=== PATIENT | female | born 1970 | race Caucasian/White ===

== ENCOUNTER 2017-07-08 07:32 | Inpatient (IN) | payer OTHER ==
[2017-07-08] MEDS: Misoprostol TAB* 100 MCG VAGINAL PRN ×2 (09:50→15:27)
[2017-07-08 11:10] LABS: ABS Basophils 0.1 10^3/ul (0-0.2); ABS Eosinophils 0.3 10^3/ul (0-0.6); ABS Lymphocytes 1.5 10^3/ul (1.0-4.8); ABS Monocytes 0.5 10^3/ul (0-0.8); ABS Neutrophils 6.1 10^3/ul (1.5-7.7); ABS Nucleated RBC 0 10^3/ul; Eosinophil % 3.2 % (0-6); Hematocrit 32 % (35-47); Hemoglobin 11.1 g/dl (12.0-16.0); Lymphocyte % 17.7 % (25-47); Mean Corpuscular HGB Conc 35 g/dl (31-36); Mean Corpuscular Hemoglobin 31 pg (27-31); Mean Corpuscular Volume 89 fL (80-97); Mean Platelet Volume 9 um3 (7.4-10.4); Nucleated Red Blood Cells % 0.1; Platelet Count 212 10^3/ul (150-450); Red Blood Count 3.62 10^6/ul (4.0-5.4); Red Cell Distribution Width 14 % (10.5-15); White Blood Count 8.4 10^3/ul (3.5-10.8)
[2017-07-08 12:12] LABS: EGFR Non-African American 122.1 (>60)
[2017-07-08] MEDS ORDERED: Oxytocin in LR* 20 UNITS/1,000 ML BAG IVPB ONE (19:51)
[2017-07-08] MEDS ORDERED: Oxytocin in LR* 20 UNITS/1,000 ML BAG IVPB SCH (20:00)
[2017-07-09] MEDS ORDERED: Penicillin G Potassium IV* 5,000,000 UNITS in NS 0.9% 100 ML* 100 ML IVPB ONE (04:46)
[2017-07-09] MEDS ORDERED: Nalbuphine* 20 MG/ML 1 ML VIAL IV PRN (05:53)
[2017-07-09] MEDS ORDERED: Promethazine INJ(RESTRICTED)* 25 MG/ML 1 ML VIAL IV PRN (05:54)
[2017-07-09] MEDS ORDERED: OBEPIDURAL* 250 ML EPIDURAL ONE (07:59)
[2017-07-09] MEDS ORDERED: Phenylephrine IV* 40 MCG/ML 10 ML SYRINGE ONE (08:07)
[2017-07-09] MEDS ORDERED: EPHEDrine (Pressors)* 50 MG/ML VIAL IV PUSH PRN ×2 (09:36)
[2017-07-09] MEDS ORDERED: Famotidine TAB* 20 MG PO PRN (09:36)
[2017-07-09] MEDS ORDERED: Phenylephrine IV* 40 MCG/ML 10 ML SYRINGE IV PUSH PRN ×2 (09:36)
[2017-07-09] MEDS ORDERED: Sodium Citrate/Citric Acid* 15 ML UDC PO PRN (09:36)
[2017-07-09] MEDS: Penicillin G Potassium IV* 2,500,000 UNITS in NS 0.9% 100 ML* 100 ML IVPB SCH (10:06)
[2017-07-09] MEDS: Levothyroxine TAB* 25 MCG TAB PO SCH (10:22)
[2017-07-09] MEDS ORDERED: Witch Hazel PAD* JAR TOPICAL PRN (13:11)
[2017-07-09] MEDS ORDERED: Glycerin ADULT SUPP PR PRN (13:11)
[2017-07-09] MEDS: OBEPIDURAL* 250 ML EPIDURAL SCH (13:40)
[2017-07-09] MEDS ORDERED: Misoprostol TAB* 200 MCG PR ONE (13:53)
[2017-07-09] MEDS ORDERED: Oxytocin in LR* 20 UNITS/1,000 ML BAG IVPB SCH (14:00)
[2017-07-09] MEDS: Ibuprofen TAB* 600 MG PO PRN (14:47)
[2017-07-09] MEDS: Docusate CAP* 100 MG PO SCH ×2 (14:58→22:54)
[2017-07-09] MEDS: Dibucaine 1% 28.35 GM TUBE PR PRN (17:09)
[2017-07-09] MEDS: Simethicone TAB* 80 MG TAB.CHEW PO SCH (22:55)
[2017-07-10] MEDS: Penicillin G Potassium IV* 2,500,000 UNITS in NS 0.9% 100 ML* 100 ML IVPB SCH (01:01)
[2017-07-10] MEDS: Ibuprofen TAB* 600 MG PO PRN ×4 (03:04→20:58)
[2017-07-10] MEDS: Acetaminophen TAB* 325 MG PO PRN (06:11)
[2017-07-10] MEDS: Levothyroxine TAB* 25 MCG TAB PO SCH (06:11)
[2017-07-10 06:46] LABS: ABS Basophils 0.1 10^3/ul (0-0.2); ABS Eosinophils 0.2 10^3/ul (0-0.6); ABS Lymphocytes 1.9 10^3/ul (1.0-4.8); ABS Monocytes 0.7 10^3/ul (0-0.8); ABS Neutrophils 10.2 10^3/ul (1.5-7.7); ABS Nucleated RBC 0 10^3/ul; Eosinophil % 1.2 % (0-6); Hematocrit 27 % (35-47); Hemoglobin 9.3 g/dl (12.0-16.0); Lymphocyte % 14.3 % (25-47); Mean Corpuscular HGB Conc 34 g/dl (31-36); Mean Corpuscular Hemoglobin 31 pg (27-31); Mean Corpuscular Volume 89 fL (80-97); Mean Platelet Volume 9 um3 (7.4-10.4); Nucleated Red Blood Cells % 0; Platelet Count 181 10^3/ul (150-450); Red Blood Count 3.05 10^6/ul (4.0-5.4); Red Cell Distribution Width 14 % (10.5-15); White Blood Count 12.9 10^3/ul (3.5-10.8)
[2017-07-10] MEDS: Docusate CAP* 100 MG PO SCH ×2 (08:54→14:29)
[2017-07-10] MEDS: Ferrous Gluconate TAB* 324 MG TAB PO SCH ×2 (08:55→20:58)
[2017-07-10] MEDS ORDERED: Measles, Mumps,Rubella VACC* 0.5 ML/VIAL SUBCUT ONE (09:30)
[2017-07-11] MEDS: OBEPIDURAL* 250 ML EPIDURAL SCH (00:50)
[2017-07-11] MEDS: Docusate CAP* 100 MG PO SCH ×2 (00:51→10:14)
[2017-07-11] MEDS: Ibuprofen TAB* 600 MG PO PRN ×2 (05:03→10:59)
[2017-07-11] MEDS: Levothyroxine TAB* 25 MCG TAB PO SCH (05:55)
[2017-07-11] MEDS: Dibucaine 1% 28.35 GM TUBE PR PRN (08:04)
[2017-07-11 08:27] VITALS: BP 122/68
[2017-07-11] MEDS: Acetaminophen TAB* 325 MG PO PRN (09:02)
[2017-07-11] MEDS: Ferrous Gluconate TAB* 324 MG TAB PO SCH (09:02)
== END 2017-07-11 12:25 | disposition home or self-care (01) | DRG 775 ==
LOC: MCHOBOUT 07:32 → MCHOB 07:40
PROVIDERS: ADMIT Obstetrics & Gynecology; ATTEND Obstetrics & Gynecology
PROC: 10E0XZZ Delivery of Products of Conception, External Approach (ICD-10-PCS; principal; 2017-07-09)
PROC: 3E033VJ Introduction of Other Hormone into Peripheral Vein, Percutaneous Approach (ICD-10-PCS; 2017-07-09)
PROC: 0W8NXZZ Division of Female Perineum, External Approach (ICD-10-PCS; 2017-07-09)
DX: O99.824 Streptococcus B carrier state complicating childbirth (principal); D64.9 Anemia, unspecified; O90.81 Anemia of the puerperium; O13.4 Gestational [pregnancy-induced] hypertension without significant proteinuria, complicating childbirth; O69.81X0 Labor and delivery complicated by cord around neck, without compression, not applicable or unspecified; Z3A.39 39 weeks gestation of pregnancy; Z37.0 Single live birth
CPT/HCPCS: 36415; 80053; 84550; 85025; 86850; 86900; 86901; 90707; A9270-GY; J2300; J2540; J2550; S0191